=== PATIENT | male | born 1955 | race Caucasian/White ===

== ENCOUNTER 2024-02-04 20:30 | Emergency (ER) | payer MEDICARE, BC, SELFPAY ==
[2024-02-04 20:36] VITALS: BP 137/83; PULSE 80; RESP 18; TEMP 36.6; O2SAT 95; BMI 24.4
[2024-02-04 20:40] VITALS: BP 176/102; PULSE 67; RESP 98; O2SAT 96
--- NOTE | 2024-02-04 20:56 | CTR_ITS ---
PROCEDURE INFORMATION: Exam: CT Head Without Contrast Exam date and time: 02/04/2024 9:28 PM Age: 69 years old Clinical indication: Injury or trauma; Additional info: Fall/head inj TECHNIQUE: Imaging protocol: Computed tomography of the head without contrast. Radiation optimization: All CT scans at this facility use at least one of these dose optimization techniques: automated exposure control; mA and/or kV adjustment per patient size (includes targeted exams where dose is matched to clinical indication); or iterative reconstruction. COMPARISON: CT cervical spin wo con* [id number] 02/04/2024 9:28 PM RADIATION DOSE METRICS: Total DLP (mGy-cm): 1251 FINDINGS: Brain: There are moderate periventricular and subcortical lucencies consistent with chronic microvascular ischemic changes.The sagastume-white differentiation is maintained. No hemorrhage. No edema. Cerebral ventricles: No ventriculomegaly. Paranasal sinuses: Visualized sinuses are unremarkable. No fluid levels. Mastoid air cells: Visualized mastoid air cells are well aerated. Bones: Unremarkable. No acute fracture. Soft tissues: Unremarkable. CT/CT head wo con* [id number] IMPRESSION: No acute intracranial abnormality. Chronic microvascular ischemic changes.
--- NOTE | 2024-02-04 20:56 | XRR_ITS ---
PROCEDURE INFORMATION: Exam: XR Right Elbow Exam date and time: 02/04/2024 8:59 PM Age: 69 years old Clinical indication: Injury or trauma; Fall; Blunt trauma (contusions or hematomas); Elbow; Right; Additional info: Fall/inj TECHNIQUE: Imaging protocol: Radiologic exam of the right elbow. Views: 3 or more views. COMPARISON: No relevant prior studies available. FINDINGS: Bones/joints: Mild osteoarthritis of the elbow. Soft tissues: Normal. XR/XR elbow RT min 3V* [id number] IMPRESSION: 1. No acute findings. 2. Mild osteoarthritis of the elbow.
--- NOTE | 2024-02-04 20:56 | CTR_ITS ---
PROCEDURE INFORMATION: Exam: CT Cervical Spine Without Contrast Exam date and time: 02/04/2024 9:28 PM Age: 69 years old Clinical indication: Injury or trauma; Additional info: Fall/head inj TECHNIQUE: Imaging protocol: Computed tomography of the cervical spine without contrast. Radiation optimization: All CT scans at this facility use at least one of these dose optimization techniques: automated exposure control; mA and/or kV adjustment per patient size (includes targeted exams where dose is matched to clinical indication); or iterative reconstruction. COMPARISON: CT head wo con* [id number] 02/04/2024 9:28 PM RADIATION DOSE METRICS: Total DLP (mGy-cm): 214.5 FINDINGS: Bones: There is multilevel uncovertebral and facet hypertrophy with neural foramina narrowing. Multilevel degenerative disc disease. Grade 1 anterolisthesis of C5 over C6. No acute fracture. Lungs: Lung apices are normal. Soft tissues: Unremarkable. CT/CT cervical spin wo con* [id number] IMPRESSION: No acute abnormality.
--- NOTE | 2024-02-04 20:58 | ED_ITS ---
Documented by User: CLARKE Tran 02/04/24 22:19 HPI - Head Injury General: Stated complaint: Fell Head Injury Time Seen by Provider: 02/04/24 20:48 History of Present Illness: Patient is a 69-year-old male presenting to the emergency department complaining of head injury after a fall onset today. Patient states he was stepping down from his pickup truck onto a stepladder, when it gave out from underneath him and he struck his head on the ground. He is also noting an injury to his right elbow, and stating he has some neck pain though he chronically has neck pain for which he takes tramadol and hydrocodone for breakthrough pain. He is not currently on a blood thinner. He is denying any other injuries at this time. Specifically he is also denying any nausea or vomiting, significant headache, visual changes, or any neurological deficits. MD Complaint: head injury and fall Onset (ago): minute(s) Mechanism of Injury: fall Place: outdoors Loss of Consciousness: no Location of injury: occipital Associated symptoms: Reports neck pain; Deny nausea or vomiting Review of Systems General: Reports: 10 or more systems reviewed and unremarkable except in HPI and below Const: Reports: other (fall/head injury); Denies: fever(s), chills or fatigue Eyes: Denies: change in vision ENMT: Denies: throat pain, ear or mastoid pain or nasal discharge Card: Denies: chest pain, palpitations, swelling of feet/ankles or lightheadedness Resp: Denies: dyspnea, productive cough or wheezing GI: Denies: abdominal pain, nausea, vomiting, diarrhea or constipation : Denies: flank pain, difficulty urinating, dysuria or urinary frequency Musc: Reports: neck pain and joint pain (right elbow); Denies: back pain Skin/Breast: Denies: rash Neuro: Denies: headache(s), numbness in extremities or weakness in extremities Physical Exam Const: COMMON NORMALS: no acute distress, patient oriented x3 and no limitations GENERAL APPEARANCE: cooperative, comfortable and well developed ORIENTATION/CONSCIOUSNESS: Yes awake, Yes oriented to person, Yes oriented to place and Yes oriented to time HENMT: COMMON NORMALS: hearing grossly normal bilaterally, external ears normal and Normal external nose present HEAD & SCALP: abrasion (No active bleeding, covered in dried blood) right occipital and scalp tenderness; no Ayala's sign, no laceration, no palpable skull fracture and no raccoon eyes FACE & SINUS: normal facial exam and face symmetric NOSE: Normal external nose present and Normal septum present EXTERNAL EAR: Yes external ears normal Eye: COMMON NORMALS: Equal, round and reactive pupils present, EOMs intact bilaterally and conjunctivae normal CONJUNCTIVA: Yes conjunctivae normal PUPIL: Yes Equal, round and reactive pupils present Neck/C-Spine: COMMON NORMALS: full ROM, supple and no JVD Resp: COMMON NORMALS: normal respiratory effort, No retractions, No use of accessory muscles and clear to auscultation bilaterally AUSCULTATION: clear to auscultation bilaterally Cardio: COMMON NORMALS: no JVD, regular rate, regular rhythm, No clicks present (Cardio), No murmurs present (Cardio) and No rub (Cardio) RATE: regular rate RHYTHM: regular rhythm GI: COMMON NORMALS: Normal to inspection, nondistended, normoactive bowel sounds present, Soft to palpation and non-tender AUSCULTATION: Yes normoactive bowel sounds PALPATION: Yes Soft to palpation RECTAL EXAM: Yes deferred Back/Pelvis: COMMON NORMALS: thoracic and lumbar spine normal to inspection, no thoracic nor lumbar tenderness and thoraco-lumbar ROM normal Extremity: COMMON NORMALS: full ROM and capillary refill normal NARRATIVE EXTREMITY EXAM: 2 Band-Aids over wound to right elbow. Small abrasion noted to the right posterior elbow. Neuro: COMMON NORMALS: patient oriented x3, CN's II-XII intact bilaterally, moves all extremities, no focal motor deficits and no sensory deficits noted SENSORIUM/ORIENTATION: Yes oriented to person, Yes oriented to place and Yes oriented to time Psych: COMMON NORMALS: mental status grossly normal and Normal thought process present THOUGHT PROCESS: Normal thought process present Skin: COMMON NORMALS: no rashes or lesions noted GENERAL SKIN EXAM: no rashes or lesions noted Course Vital Signs: Vital signs: Vital Signs Temperature 98 F 02/04/24 20:36 Pulse Rate 60 02/04/24 22:22 Respiratory Rate 98 H 02/04/24 20:40 Blood Pressure 148/92 02/04/24 22:22 Pulse Oximetry 93 02/04/24 22:22 Oxygen Delivery Me thod Room Air 02/04/24 20:40 MDM - Head Injury Medcial Decision Making Patient presented tonight for evaluation after falling and striking his head. He is not on any blood thinners. His imaging of head and neck were negative for any acute intracranial findings or fractures. Additionally his right elbow x- ray was negative. He takes tramadol at home daily and has hydrocodone as needed for chronic back issues, and will continue to take this for any breakthrough pain. Did inform him that he might be dealing with symptoms consistent with a postconcussive syndrome, and specific signs and symptoms to watch for were discussed thoroughly. Other return precautions given and patient will be discharged home. Lab Data Radiology Impressions Cervical Spine CT 02/04/24 20:56 IMPRESSION: No acute abnormality. Elbow X-Ray 02/04/24 20:56 IMPRESSION: 1. No acute findings. 2. Mild osteoarthritis of the elbow. Head CT 02/04/24 20:56 IMPRESSION: No acute intracranial abnormality. Chronic microvascular ischemic changes. All radiology interpretation(s) finalized by discharge Discharge Plan Discharge Patient Disposition: Home Clinical Impression: Fall Qualifiers: Encounter type: initial encounter Qualified Code(s): W19.XXXA - Unspecified fall, initial encounter Abrasion head Qualifiers: Encounter type: initial encounter Qualified Code(s): S00.91XA - Abrasion of unspecified part of head, initial encounter Contusion of elbow Qualifiers: Encounter type: initial encounter Laterality: right Qualified Code(s): S50.01XA - Contusion of right elbow, initial encounter Condition: Stable Discharge Orders: Discharge ED (Routine); Ordered 02/04/24 Ordered By: Eitan Duong Discharge Diet: Usual diet Discharge Activity: Increase activity as tolerated Patient Instructions: Head Injury (ED) Activity Restrictions/Additional Instructions: Pain medications at home as needed. Ice to the elbow and head for added relief. Monitor for any new or worsening symptoms and return to the emergency department for reevaluation. Otherwise, you may follow-up with primary care. Coding Level of Care Code ED [employer] [employer] [facility] Documented by User: Nathanael Griffin DO 02/10/24 15:55 HPI - Head Injury General: Stated complaint: Fell Head Injury Time Seen by Provider: 02/04/24 20:48 Course Vital Signs: Vital signs: Vital Signs Temperature 98 F 02/04/24 20:36 Pulse Rate 60 02/04/24 22:22 Respiratory Rate 98 H 02/04/24 20:40 Blood Pressure 148/92 02/04/24 22:22 Pulse Oximetry 93 02/04/24 22:22 Oxygen Delivery Me thod Room Air 02/04/24 20:40 MDM - Head Injury Medcial Decision Making Patient presented tonight for evaluation after falling and striking his head. He is not on any blood thinners. His imaging of head and neck were negative for any acute intracranial findings or fractures. Additionally his right elbow x- ray was negative. He takes tramadol at home daily and has hydrocodone as needed for chronic back issues, and will continue to take this for any breakthrough pain. Did inform him that he might be dealing with symptoms consistent with a postconcussive syndrome, and specific signs and symptoms to watch for were discussed thoroughly. Other return precautions given and patient will be discharged home. Chart review Lab Data Radiology Impressions Cervical Spine CT 02/04/24 20:56 IMPRESSION: No acute abnormality. Elbow X-Ray 02/04/24 20:56 IMPRESSION: 1. No acute findings. 2. Mild osteoarthritis of the elbow. Head CT 02/04/24 20:56 IMPRESSION: No acute intracranial abnormality. Chronic microvascular ischemic changes. Discharge Plan Discharge Patient Disposition: Home Clinical Impression: Fall Qualifiers: Encounter type: initial encounter Qualified Code(s): W19.XXXA - Unspecified fall, initial encounter Abrasion head Qualifiers: Encounter type: initial encounter Qualified Code(s): S00.91XA - Abrasion of unspecified part of head, initial encounter Contusion of elbow Qualifiers: Encounter type: initial encounter Laterality: right Qualified Code(s): S50.01XA - Contusion of right elbow, initial encounter Condition: Stable Discharge Orders: Discharge ED (Routine); Ordered 02/04/24 Ordered By: Eitan Duong Discharge Diet: Usual diet Discharge Activity: Increase activity as tolerated Patient Instructions: Head Injury (ED) Activity Restrictions/Additional Instructions: Pain medications at home as needed. Ice to the elbow and head for added relief. Monitor for any new or worsening symptoms and return to the emergency department for reevaluation. Otherwise, you may follow-up with primary care. Coding Level of Care Code ED [employer] [employer] [facility]
[2024-02-04 22:22] VITALS: BP 148/92; PULSE 60; O2SAT 93
== END 2024-02-04 22:27 | disposition home or self-care (01) ==
PROVIDERS: Emergency Provider Physician Assistant
DX: S50.01XA Contusion of right elbow, initial encounter (principal); S00.01XA Abrasion of scalp, initial encounter; W17.89XA Other fall from one level to another, initial encounter
CPT/HCPCS: 70450; 72125; 73080; 99284